=== PATIENT | male | born 1985 | race African-American/Black ===

== ENCOUNTER 2017-11-15 23:10 | Emergency (ER) | payer OTHER ==
[~2017-11-15] VITALS: Ht 180.3 cm; Wt 120.0 kg
[2017-11-15] MEDS ORDERED: methylPREDNISolone SOD SUCC 125 MG/2 ML ONE (23:19)
[2017-11-15] MEDS ORDERED: EPINEPHRINE 1 MG/ML, 1ML ONE (23:19)
[2017-11-15] MEDS ORDERED: ONDANSETRON 2MG/ML, 2ML ONE (23:20)
[2017-11-15] MEDS ORDERED: FAMOTIDINE 20 MG/2 ML ONE (23:20)
[2017-11-15] MEDS ORDERED: EPINEPHRINE 1 MG/ML, 1ML SQ ONE (23:30)
[2017-11-15] MEDS ORDERED: ONDANSETRON 2MG/ML, 2ML IVPush ONE (23:30)
[2017-11-15] MEDS ORDERED: FAMOTIDINE 20 MG/2 ML IVPush ONE (23:30)
[2017-11-15] MEDS ORDERED: SODIUM CHLORIDE 0.9% 1,000ML IVBOLUS ONE (23:30)
[2017-11-15] MEDS ORDERED: SODIUM CHLORIDE FLUSH 10ML SYR IVF ONE (23:30)
[2017-11-15] MEDS ORDERED: methylPREDNISolone SOD SUCC 125 MG/2 ML IVPush ONE (23:30)
[2017-11-16 01:30] VITALS: BP 125/67
== END 2017-11-16 01:32 | disposition home or self-care (01) ==
LOC: ED 23:59
DX: T78.3XXA Angioneurotic edema, initial encounter (principal); T78.1XXA Other adverse food reactions, not elsewhere classified, initial encounter; X58.XXXA Exposure to other specified factors, initial encounter; F17.200 Nicotine dependence, unspecified, uncomplicated
CPT/HCPCS: 93005; 96361; 96372; 96374; 96375; 99284; J0171; J2405; J2930; J7030; S0028